=== PATIENT | female | born 1965 | race Caucasian/White ===

== ENCOUNTER → 2017-12-26 | Outpatient (CLI) | payer OTHER ==
[~2017-12-26] MED LIST: ATENOLOL25 M1 NG; ATENOLOL50 MG PO; BIOTIN10000 MC1 PO; CLONAZEPAM1 MG PO; DAILY VALUE1 EACH PO; EFFEXOR37.5 MG PO; HYDROCODON-ACE1 EAC7 PO; LEXAPRO10 MG PO; NEXIUM20 MG PO; PRAVASTATIN SOD20 MG PO; PROTONIX40 MG PO; SYNTHROID50 MCG PO; VITAMIN D10000 UNIT PO; XANAX0.5 MG PO; ZYRTEC10 M2 PO
== END | disposition home or self-care (01) ==
LOC: PICC 13:00
DX: I99.8 Other disorder of circulatory system (principal)
CPT/HCPCS: 76937

== ENCOUNTER 2018-01-16 05:03 | Emergency (ER) | payer OTHER ==
[~2018-01-16] VITALS: Ht 167.6 cm; Wt 127.3 kg
[2018-01-16 05:44] LABS: HEMOGLOBIN 14.6 G/DL (11.9-15.5); MCH 31.7 PG (29.0-34.0); MCV 93.3 FL (83-99); PLATELET COUNT 243 K/uL (156-360); RBC DIS.WIDTH-CV 12.3 % (11.8-14.6); RBC DIS.WIDTH-SD 42.2 % (39-53); RED BLOOD COUNT 4.61 M/uL (3.80-5.20); WHITE BLOOD COUNT 13.9 K/uL (4.1-10.2)
[2018-01-16 06:32] LABS: ALBUMIN 3.9 g/dL (3.2-4.8); CHLORIDE 107 mEq/L (99-109); SODIUM 141 mEq/L (136-147)
[2018-01-16 06:34] LABS: GLUCOSE 168 mg/dL (70-99); TOTAL PROTEIN 6.6 g/dL (6.4-8.3)
[2018-01-16 06:36] LABS: TOTAL BILIRUBIN 0.4 mg/dL (0.0-1.0)
[2018-01-16 06:38] LABS: ALKALINE PHOSPHATASE 109 IU/L (3-129); CREATININE 0.8 mg/dL (0.6-1.3); GFR ESTIMATE (CALCULATED) > 59 mL/min/
[2018-01-16 06:39] LABS: UREA NITROGEN (BUN) 8 mg/dL (9-23)
[2018-01-16 06:40] LABS: AST (GOT) 26 IU/L (2-34)
[2018-01-16 06:41] LABS: ALT (GPT) 28 IU/L (3-49); LIPASE 27 U/L (1.0-51.0)
[2018-01-16] MEDS ORDERED: PEPCID20 MG PO (07:31)
[2018-01-16] MEDS ORDERED: REGLAN10 MG PO (07:31)
[2018-01-16 08:47] VITALS: BP 146/81
== END 2018-01-16 08:48 | disposition home or self-care (01) ==
LOC: EME → EDBD 05:03 → EME 05:03
PROVIDERS: Emergency Medicine
DX: R11.2 Nausea with vomiting, unspecified (principal); T37.3X5A Adverse effect of other antiprotozoal drugs, initial encounter; R19.7 Diarrhea, unspecified; K29.00 Acute gastritis without bleeding; E86.0 Dehydration; K57.30 Diverticulosis of large intestine without perforation or abscess without bleeding; K76.0 Fatty (change of) liver, not elsewhere classified; K42.9 Umbilical hernia without obstruction or gangrene; Z90.49 Acquired absence of other specified parts of digestive tract; Z88.0 Allergy status to penicillin; Z88.2 Allergy status to sulfonamides; Z98.84 Bariatric surgery status; Z87.891 Personal history of nicotine dependence
CPT/HCPCS: 71045; 74177; 80053; 81003; 83690; 85027; 99281; 99285; J2405; J2765; J7030; S0028